=== PATIENT | male | born 1980 | race Caucasian/White ===

== ENCOUNTER 2023-02-21 17:04 | Inpatient (IN) ==
--- NOTE | 2023-02-21 17:36 | ED Triage Note ---
Date of Service February 21, 2023 Provider in Triage Author: Ivana Villa History of Present Illness This patient was briefly evaluated while in triage. An abbreviated physical exam was performed. This patient is a 42-year-old Male who presents to the ED for evaluation of Physical Exam Initial orders for labs and / or imaging were placed and patient was placed in the waiting area until a bed is available. Please see further documentation for the full ED course.
--- NOTE | 2023-02-21 21:47 | Emergency Department Note ---
History of Present Illness General Chief complaint: Infection Stated complaint: RT BIG TOE INFECTION, OPEN HEATHER Time Seen by Provider: 02/21/23 21:20 History of Present Illness NAME: LEEROY KOCH AGE: 42 SEX: M : 1980 ARRIVES VIA: Walk-In INFORMANT: Patient ED PROVIDER(S): NIDA Villatoro, Cody Alexander MD The patient is a 42-year-old male who arrives to the emergency department for evaluation of a right great toe infection. The patient has a history of diabetes type 2 with complications. The patient reports he was previously being treated by his striper spray gun, who was giving him oral antibiotics. He states he visited for a follow-up appointment today, and was instructed to come to the emergency department for evaluation. The patient is neurovascularly intact, he does report very little sensation to the great toe. He states it began as a callus on the bottom of the toe which opened up and created the large wound engulfing the entirety of the great toe. Home Medications Medication Instructions Recorded Confirmed Type antiarthritic combination no.2 900 900 mg PO QAM 07/04/21 02/22/23 History mg tablet (glucosamine-chondroitin) ibuprofen 200 mg capsule 200 mg PO Q8H PRN pain 07/04/21 02/21/23 History multivitamin 1 tab PO QAM 07/04/21 02/22/23 History omega 5-kti-hva-fish oil 300 1 cap PO QAM 07/04/21 02/22/23 History mg-1,000 mg capsule (Fish Oil) empagliflozin 10 mg tablet 10 mg PO QAM #90 tabs 01/16/23 02/22/23 Rx metformin 1,000 mg tablet 1,000 mg PO BID #180 tabs 01/16/23 02/22/23 Rx Auto Titrating CPAP #1 ea 01/17/23 02/22/23 Rx CPAP Supplies #1 ea 01/19/23 02/22/23 Rx lisinopril 5 mg tablet 5 mg PO QAM 02/22/23 02/22/23 History Allergies Allergy/AdvReac Type Severity Reaction Status Date / Time No Known Drug Allergies Allergy none Verified 02/22/23 00:15 Past Med/Surg History Medical History Snoring Status post pneumothorax Diabetes with ulcer of foot 41 year old man with a history of Type II diabetes for upcoming surgery on L 5th toe and debridement and skin grafting of diabetic ulcer on bottom of L foot, here for management of anticoagulation therapy. Patient will be immobilized in a boot for two weeks with limited walking. Patient has factor V Leiden heterozygosity. He has never had a VTE event, but a brother has had several and is on lifelong anticoagulation. There are no good data and no specific recommendations on how to manage this type of patient in this clinical situation. The patient and I had a long discussion about options. My opinion is informed by his history of type II diabetes and his history of cellulitis in this leg (last October). A post phlebitic syndrome would potentially be very problematic for him. Given that the Factor V Leiden and the immobilization give him and increased risk for VTE events, I have recommended a prophylactic dose of a DOAC for two weeks following surgery. Originally I was going to chose Eliquis, but it is non-formulary on his insurance so I have opted for Xarelto 10 mg daily which will begin the evening (24 hours after) his procedure. He will take this for 2 weeks at which time we will contact the patient to see how the healing process is going. If he is out of his boot and ambulating more, we will switch him to 81 mg ASA until he has resumed normal activity. Standard clinic education on VTE signs and symptoms and prevention is provided. Factor V Leiden Surgical History Status post ORIF of fracture of ankle H/O left knee surgery History of appendectomy Family History Mother Cancer Denies family history of Ovarian cancer Prostate cancer Diabetes Myocardial infarction Breast cancer Colorectal cancer Social History Smoking Status: Unknown if ever smoked Tobacco Type: Cigars Cigarettes Per Day: very rarely has a cigar; once a year; Second Hand Exposure: No; Do You Dip or Chew Tobacco: No; Hx Alcohol Use: Yes Alcohol type: beer Alcohol Intake Frequency Comment: weekends Hx Substance Use: No Preferred Language: Turkish Communication Ability: Effective Visual Impairment: Limited Hearing Ability: Normal Veterans Service Representative Required: No Beliefs That Will Affect Care: None marital status: Single Current Living Situation: Alone Current Living Situation Comment: pt aware that needs to find someone to help after procedure current occupational status: employed How many Children do You have: 0 Feels Safe at Home: Yes Childhood Exposure to Second-Hand Smoke: No caffeine: Yes (some use) Dental Care, Regularly: No Physical Activity Frequency: Does not Exercise Seatbelt Use: sometimes Sunscreen Use: Yes (at the pool or beach ) Assistive Devices: Glasses Physical Exam Vital Signs Vital Signs - 24 hr 02/21/23 17:35 02/22/23 00:32 02/22/23 00:37 Temperature 36.2 C L 36.9 C Temperature Source Temporal Artery Scan Oral Pulse Rate 94 H Pulse Rate [Right Finger] 80 Respiratory Rate 18 16 Respiratory Effort / Characteristics Non-Labored Spontaneous Respiratory Depth Normal Respiratory Pattern Regular Blood Pressure 146/81 H Blood Pressure [Right Arm] 130/76 Blood Pressure Mean 102 Blood Pressure Mean [Right Arm] 94 Blood Pressure Position Sitting Pulse Oximetry 95 99 95 Oxygen Delivery Method Room Air Room Air Sepsis Recent Fever Within 48 Hours No Sepsis New/Unexplained Change in Mental Status N/A Sepsis Action Taken by Nursing No Action Required General: Awake, alert and oriented. No acute distress. Well developed, hydrated and nourished. Appears stated age. Skin: Skin in warm, dry and intact without rashes or lesions. Appropriate color for ethnicity. Nailbeds pink with no cyanosis or clubbing. Head: The head is normocephalic and atraumatic without tenderness, visible or palpable masses, depressions, or scarring. Hair is of normal texture and evenly distributed. Extremities: Bilateral upper and left lower extremities are atraumatic in appearance without tenderness or deformity. No swelling or erythema. Full range of motion is noted to all joints. Muscle strength is 5/5 bilaterally. Tendon function is normal. Capillary refill is less than 3 seconds in all extremities. Pulses palpable. The right great toe is edematous, with various stages of ulceration and necrosis. There is decreased sensation. Neurological: The patient is awake, alert and oriented to person, place, and time with normal speech. Motor function is normal with muscle strength 5/5 bilaterally to upper and lower extremities. Sensation is intact bilaterally. Reflexes 2+ bilaterally. Cranial nerves are intact. Cerebellar function is intact. Memory is normal and thought process is intact. Psychiatric: Appropriate mood and affect. Good judgement and insight. No visual or auditory hallucinations. No suicidal or homicidal ideation. Course Administered Medications Vancomycin HCl 2,750 mg/ (Sodium Chloride) 555 mls @ 200 mls/hr IV NOW STA Stop: 02/22/23 02:06 Last Admin: 02/22/23 00:32 Dose: 200 mls/hr Documented By: ASW Discontinued Medications Piperacillin Sod/Tazobactam Sod (Zosyn) 4.5 gm in 100 mls @ 200 mls/hr IV NOW ONE Stop: 02/21/23 22:21 Last Infusion: 02/21/23 23:29 Dose: Infused Documented By: Admin: 02/21/23 22:22 Dose: 200 mls/hr Documented By: Medical Decision Making Differential Diagnosis Foreign body, osteomyelitis, fracture, dislocation, joint compromise, infection, soft tissue injury, tendon injury, vascular compromise, compartment syndrome, as well as other pathologies. Medical Records Attestation: I reviewed the patient's medical records. Home Medications Current Medication List: was personally reviewed by me Laboratory Data Attestation: I reviewed the patient's lab results. No leukocytosis, no electrolyte abnormalities. 02/21/23 22:18 02/21/23 22:18 Lab Results 02/21/23 Range/Units 22:18 WBC 4.51 L (4.8-10.8) K/ul RBC 5.06 (4.70-6.10) M/uL Hgb 15.2 (14.0-18.0) g/dl Hct 44.6 (42.0-52.0) % MCV 88.1 (80.0-100.0) fL MCH 30.0 (25.0-34.0) pg MCHC 34.1 (32.0-36.0) g/dL RDW Std Deviation 41.7 (36.4-46.3) fL RDW Coeff of Mariaelena 13.2 (11.5-14.5) % Plt Count 239 (130-400) K/uL MPV 8.0 L (9.4-12.4) fL Immature Gran % (Auto) 0.2 % Neut % (Auto) 61.7 % Lymph % (Auto) 27.5 % [place] % (Auto) 10.2 % Eos % (Auto) 0.2 % Baso % (Auto) 0.2 % Neut # (Auto) 2.78 (1.40-6.50) K/uL Lymph # (Auto) 1.24 (1.20-3.40) K/uL [place] # (Auto) 0.46 (0.11-0.59) K/uL Eos # (Auto) 0.01 (0.00-0.50) K/uL Baso # (Auto) 0.01 (0.00-0.20) K/uL Immature Gran # (Auto) 0.01 (0.01-0.20) K/uL Sodium 138 (136-145) mmol/L Potassium 4.2 (3.5-5.1) mmol/L Chloride 103 (98-107) mmol/L Carbon Dioxide 28 (21-32) mmol/L Anion Gap 7 (3-11) BUN 20 (6-23) mg/dl Creatinine 0.71 (0.6-1.4) mg/dl Est Cr Clr Drug Dosing 197.2 ml/min Est GFR ( Amer) 132.3 ml/min Est GFR (Non-Af Amer) 114.1 ml/min BUN/Creatinine Ratio 28.2 H (10-20) Glucose 105 H (70-99(Fasting)) mg/dl Lactate 1.2 (0.4-2.0) mmol/L Calcium 9.6 (8.6-10.3) mg/dl Total Bilirubin 0.6 (0.2-1.0) mg/dl AST 31 (13-39) U/L ALT 51 (7-52) U/L Alkaline Phosphatase 40 (34-104) U/L Total Protein 7.8 (6.0-8.3) gm/dl Albumin 4.6 (3.4-5.0) gm/dl Globulin 3.2 (2.5-4.0) gm/dl Albumin/Globulin Ratio 1.4 (0.9-2) Imaging Data Radiologist's Impression: Toe X-Ray 02/21/23 21:52 RIGHT FIRST TOE 3 VIEWS CLINICAL HISTORY: First toe infection. FINDINGS: 3 views of the right first toe are correlated with radiographs of the right foot dated 10/25/2022. The skeletal structures are well mineralized. There is permeative destructive change and bony fragmentation seen involving the tuft of the first distal phalanx. Overlying soft tissue edema is noted. The first metatarsophalangeal and interphalangeal joints are maintained. No radiodense foreign body or soft tissue gas is identified. A small ulceration suggested along the plantar aspect of the first toe. IMPRESSION: 1. There is permeative destructive change and bony fragmentation involving the tuft of the first distal phalanx. Given the history of infection this is typical for osteomyelitis. 2. There is evidence of cellulitis of the first toe with a small plantar ulceration. Electronically signed by: Nelson Paige M.D. 02/21/2023 10:17 PM MDM Narrative The patient is a 42-year-old male who arrives to the emergency department with the above-stated complaint. Upon examination the patient has a visibly infected right great toe. He is currently following with podiatry, and has been on a course of oral antibiotics. He was at the office today for reevaluation when the provider stated the patient needed to be evaluated in the emergency department for IV antibiotics. The patient had imaging 2 weeks ago, repeat imaging today showed significantly worsening cellulitis, as well as osteomyelitis. The patient is not showing signs of systemic infection, however he will need to be admitted for treatment as well as possible surgical debridement. A saline lock was placed, CBC, CMP, blood cultures, lactate were obtained. A wound culture was obtained prior to empiric therapy. 4.5 g of Zosyn as well as weight-based vancomycin was ordered. I consulted with Dr. Aleman from orthopedics, who stated the patient could be admitted to medicine with podiatry consult. Dr. Valiente from the [facility] admitting team assumed care of the patient at that time. Impression & Plan Osteomyelitis of great toe of right foot Discharge Plan Visit Data Chief Complaint: Infection Stated Complaint: RT BIG TOE INFECTION, OPEN HEATHER ED Provider: Cody Alexander ED Midlevel Provider: Ivana Villa Discharge Problem: Osteomyelitis of great toe of right foot Forms Stand Alone Forms: [facility] Prescriptions Prescriptions: No Action multivitamin Tablet 1 tab PO QAM omega 6-szx-msk-fish oil [Fish Oil] 300-1,000 mg capsule 1 cap PO QAM glucosamine-chondroitin 900 mg tablet 900 mg PO QAM ibuprofen 200 mg capsule 200 mg PO Q8H PRN (Reason: pain) metformin 1,000 mg tablet 1,000 mg PO BID Qty: 180 3RF empagliflozin 10 mg tablet 10 mg PO QAM Qty: 90 1RF (DME) Auto Titrating CPAP Misc See Rx Instructions .Route Qty: 1 0RF Rx Instructions: pressures from 5 to 15 cm of water (DME) CPAP Supplies Misc See Rx Instructions .Route Qty: 1 0RF Rx Instructions: tubing, mask, filter lisinopril 5 mg tablet 5 mg PO QAM Referrals Referrals: Marcos Jacobs DO [Primary Care Provider] -
[2023-02-21] MEDS ORDERED: PIPERACILLIN/TAZOBACTAM 4.5 GM/100 ML BAG IV ONE (21:52)
--- NOTE | 2023-02-21 22:20 | XRay Report ---
RIGHT FIRST TOE 3 VIEWS CLINICAL HISTORY: First toe infection. FINDINGS: 3 views of the right first toe are correlated with radiographs of the right foot dated 2022. The skeletal structures are well mineralized. There is permeative destructive change and bony f ragmentation seen involving the tuft of the first distal phalanx. Overlying soft tissue edema is note d. The first metatarsophalangeal and interphalangeal joints are maintained. No radiodense foreign bod y or soft tissue gas is identified. A small ulceration suggested along the plantar aspect of the firs t toe. IMPRESSION: 1. There is permeative destructive change and bony fragmentation involving the tuft of the first dist al phalanx. Given the history of infection this is typical for osteomyelitis. 2. There is evidence of cellulitis of the first toe with a small plantar ulceration. Electronically signed by: Nelson Paige M.D. 02/21/2023 10:17 PM
[2023-02-21 22:37] LABS: Basophils # (auto) 0.01 K/uL (0.00-0.20); Basophils % (auto) 0.2 %; Eosinophils # (auto) 0.01 K/uL (0.00-0.50); Eosinophils % (auto) 0.2 %; Hematocrit (blood only) 44.6 % (42.0-52.0); Hemoglobin 15.2 g/dl (14.0-18.0); Immature Granulocytes # (auto) 0.01 K/uL (0.01-0.20); Immature Granulocytes % (auto) 0.2 %; Lymphocytes # (auto) 1.24 K/uL (1.20-3.40); Lymphocytes % (auto) 27.5 %; Mean Corpuscular Hgb Conc 34.1 g/dL (32.0-36.0); Mean Corpuscular Volume 88.1 fL (80.0-100.0); Monocytes # (auto) 0.46 K/uL (0.11-0.59); Monocytes % (auto) 10.2 %; Neutrophils # (auto) 2.78 K/uL (1.40-6.50); Neutrophils % (auto) 61.7 %; Platelet Count 239 K/uL (130-400); RDW Coefficient of Variation 13.2 % (11.5-14.5); RDW Standard Deviation 41.7 fL (36.4-46.3); Red Blood Count 5.06 M/uL (4.70-6.10); White Blood Count 4.51 K/ul (4.8-10.8)
[2023-02-21 22:52] LABS: Albumin Globulin Ratio 1.4 (0.9-2); Albumin Level 4.6 gm/dl (3.4-5.0); BUN Creatinine Ratio 28.2 (10-20); Bilirubin,Total 0.6 mg/dl (0.2-1.0); Calcium 9.6 mg/dl (8.6-10.3); Creatinine Clr Calc Pharmacy 197.2 ml/min; Est GFR (African American) 132.3 ml/min; Est GFR (Non-African American) 114.1 ml/min; Globulin 3.2 gm/dl (2.5-4.0); Potassium 4.2 mmol/L (3.5-5.1); Total Protein 7.8 gm/dl (6.0-8.3)
[2023-02-21] MEDS ORDERED: VANCOMYCIN CONSULT ACTIVE PRN ×2 (23:15→23:30)
[2023-02-21] MEDS ORDERED: VANCOMYCIN HCL 2,750 MG in SODIUM CHLORIDE 0.9% 500 ML IV STA (23:20)
[2023-02-21] MEDS ORDERED: VANCOMYCIN HCL 2,750 MG in SODIUM CHLORIDE 0.9% 500 ML IV ONE (23:30)
--- NOTE | 2023-02-21 23:52 | History & Physical Report ---
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: (3) HTN, goal below 130/80: (4) Factor V Leiden: (5) Diabetes mellitus type 2 with complications: (6) Diabetic neuropathy: Plan Osteomyelitis right great toe/diabetic foot infection- Has had arterial Dopplers in the past that are normal, and has a good distal pulse bilaterally Zosyn 4.5 g IV given in ED Add vancomycin IV per pharmacokinetic monitoring Ertapenem 1 g IV daily for ease of use in case he will be discharged on antibiotics Will likely need PICC line Order MRI of right foot to further characterize infection Diabetes mellitus- Hold metformin Continue empagliflozin Placed on Accu-Cheks with NovoLog SSI Factor V Leiden history- Check lower extremity venous Doppler on the right Sleep disorder- CPAP at bedtime as needed History of Present Illness Chief Complaint: The patient presents to the emergency department with complaint of an ongoing right great toe infection for the past couple months. He has been treated by his outpatient supervisor correspondence section with oral antibiotics, which he had been appearing to be healing well, until the past few days when the toe started to swell and opened up at the most distal part. Primary Care Provider: Marcos Jacobs DO The patient is a 42-year-old male with a past medical history including factor V Leiden, hypertension, diabetic ulcer of right great toe, history of pneumothorax, and hypertriglyceridemia, diabetes mellitus type 2, diabetic neuropathy, obesity, and MAXI on CPAP. He presents to the emergency department due to a worsening of right great toe infection. X-rays in the emergency depa rtment suggested a right first distal phalanx infection suggestive of osteomyelitis and cellulitis. Allergies Allergy/AdvReac Type Severity Reaction Status Date / Time No Known Drug Allergies Allergy none Verified 02/22/23 00:15 Home Medications Medication Instructions Recorded Confirmed Type antiarthritic combination no.2 900 900 mg PO QAM 07/04/21 02/22/23 History mg tablet (glucosamine-chondroitin) ibuprofen 200 mg capsule 200 mg PO Q8H PRN pain 07/04/21 02/21/23 History multivitamin 1 tab PO QAM 07/04/21 02/22/23 History omega 7-klv-qii-fish oil 300 1 cap PO QAM 07/04/21 02/22/23 History mg-1,000 mg capsule (Fish Oil) empagliflozin 10 mg tablet 10 mg PO QAM #90 tabs 01/16/23 02/22/23 Rx metformin 1,000 mg tablet 1,000 mg PO BID #180 tabs 01/16/23 02/22/23 Rx Auto Titrating CPAP #1 ea 01/17/23 02/22/23 Rx CPAP Supplies #1 ea 01/19/23 02/22/23 Rx lisinopril 5 mg tablet 5 mg PO QAM 02/22/23 02/22/23 History Past Med/Surg History Medical History (Updated 02/22/23 @ 02:08 by Eder Cerda MD) Factor V Leiden Snoring Status post pneumothorax Diabetes with ulcer of foot 41 year old man with a history of Type II diabetes for upcoming surgery on L 5th toe and debridement and skin grafting of diabetic ulcer on bottom of L foot, here for management of anticoagulation therapy. Patient will be immobilized in a boot for two weeks with limited walking. Patient has factor V Leiden heterozygosity. He has never had a VTE event, but a brother has had several and is on lifelong anticoagulation. There are no good data and no specific recommendations on how to manage this type of patient in this clinical situation. The patient and I had a long discussion about options. My opinion is informed by his history of type II diabetes and his history of cellulitis in this leg (last October). A post phlebitic syndrome would potentially be very problematic for him. Given that the Factor V Leiden and the immobilization give him and increased risk for VTE events, I have recommended a prophylactic dose of a DOAC for two weeks following surgery. Originally I was going to chose Eliquis, but it is non-formulary on his insurance so I have opted for Xarelto 10 mg daily which will begin the evening (24 hours after) his procedure. He will take this for 2 weeks at which time we will contact the patient to see how the healing process is going. If he is out of his boot and ambulating more, we will switch him to 81 mg ASA until he has resumed normal activity. Standard clinic education on VTE signs and symptoms and prevention is provided. Surgical History Status post ORIF of fracture of ankle H/O left knee surgery History of appendectomy Family History Mother Cancer Denies family history of Ovarian cancer Prostate cancer Diabetes Myocardial infarction Breast cancer Colorectal cancer Social History Smoking Status: Unknown if ever smoked Tobacco Type: Cigars Cigarettes Per Day: very rarely has a cigar; once a year; Second Hand Exposure: No; Do You Dip or Chew Tobacco: No; Hx Alcohol Use: Yes Alcohol type: beer Alcohol Intake Frequency Comment: weekends Hx Substance Use: No Preferred Language: Austrian Communication Ability: Effective Visual Impairment: Limited Hearing Ability: Normal [employer] Required: No Beliefs That Will Affect Care: None marital status: Single Current Living Situation: Alone Current Living Situation Comment: pt aware that needs to find someone to help after procedure current occupational status: employed How many Children do You have: 0 Feels Safe at Home: Yes Childhood Exposure to Second-Hand Smoke: No caffeine: Yes (some use) Dental Care, Regularly: No Physical Activity Frequency: Does not Exercise Seatbelt Use: sometimes Sunscreen Use: Yes (at the pool or beach ) Assistive Devices: Glasses Review of Systems Review of Systems: The patient denies chest pain, palpitations, shortness of breath, dyspnea on exertion, cough, sore throat, fevers, chills, sweats, weight change, fatigue, nausea, vomiting, diarrhea , constipation, abdominal pain, pelvic pain, blood in urine or stool, dysuria, urinary frequency or urgency, lightheadedness, dizziness, headache, memory loss, loss of consciousness, imbalance, focal or generalized weakness, numbness or tingling in arms or legs, generalized arthralgias or myalgias, back or neck pain, or night sweats. The review of systems is otherwise negative other than for that already noted above, and at least 10 systems have been reviewed. Physical Exam Physical Exam: The patient is awake, alert and oriented 3, well developed and well nourished, normocephalic and atraumatic, lying in bed and in no acute distress. HEENT--PERRL, EOMI, mucous membranes and oropharynx normal Neck--supple. No JVD. No bruits. Thyroid normal, trachea midline, no adenopathy. Heart--normal S1 and S2. No murmurs, rubs or gallops. Lungs--clear bilaterally, no respiratory distress, no accessory muscle use. Abdomen--normal bowel sounds and soft. Nontender. Nondistended, no hernias or masses, no organomegaly. Extremities--no cyanosis or clubbing. Trace pitting edema on the right. There are good distal pulses b/l. Dermatologic--normal skin turgor, normal color, no abnormal lymph nodes, no rash. Neurologic--cranial nerves II through XII grossly intact. Rheumatologic--normal range of motion. Psychiatric--normal affect. Results & Data Results & Data Vital Signs (Past 12 Hours) Vital Signs Temp Pulse Resp BP Pulse Ox O2 Del Method 02/21/23 17:35 36.2 C L 94 H 18 146/81 H 95 Room Air Laboratory Results Laboratory Results WBC 4.51 K/ul (4.8-10.8) L 02/21/23 22:18 RBC 5.06 M/uL (4.70-6.10) 02/21/23 22:18 Hgb 15.2 g/dl (14.0-18.0) 02/21/23 22:18 Hct 44.6 % (42.0-52.0) 02/21/23 22:18 MCV 88.1 fL (80.0-100.0) 02/21/23 22:18 MCH 30.0 pg (25.0-34.0) 02/21/23 22:18 MCHC 34.1 g/dL (32.0-36.0) 02/21/23 22:18 RDW Std Deviation 41.7 fL (36.4-46.3) 02/21/23 22:18 RDW Coeff of Mariaelena 13.2 % (11.5-14.5) 02/21/23 22:18 Plt Count 239 K/uL (130-400) 02/21/23 22:18 MPV 8.0 fL (9.4-12.4) L 02/21/23 22:18 Immature Gran % (Auto) 0.2 % 02/21/23 22:18 Neut % (Auto) 61.7 % 02/21/23 22:18 Lymph % (Auto) 27.5 % 02/21/23 22:18 [place] % (Auto) 10.2 % 02/21/23 22:18 Eos % (Auto) 0.2 % 02/21/23 22:18 Baso % (Auto) 0.2 % 02/21/23 22:18 Neut # (Auto) 2.78 K/uL (1.40-6.50) 02/21/23 22:18 Lymph # (Auto) 1.24 K/uL (1.20-3.40) 02/21/23 22:18 [place] # (Auto) 0.46 K/uL (0.11-0.59) 02/21/23 22:18 Eos # (Auto) 0.01 K/uL (0.00-0.50) 02/21/23 22:18 Baso # (Auto) 0.01 K/uL (0.00-0.20) 02/21/23 22:18 Immature Gran # (Auto) 0.01 K/uL (0.01-0.20) 02/21/23 22:18 Sodium 138 mmol/L (136-145) 02/21/23 22:18 Potassium 4.2 mmol/L (3.5-5.1) 02/21/23 22:18 Chloride 103 mmol/L (98-107) 02/21/23 22:18 Carbon Dioxide 28 mmol/L (21-32) 02/21/23 22:18 Anion Gap 7 (3-11) 02/21/23 22:18 BUN 20 mg/dl (6-23) 02/21/23 22:18 Creatinine 0.71 mg/dl (0.6-1.4) 02/21/23 22:18 Est Cr Clr Drug Dosing 197.2 ml/min 02/21/23 22:18 Est GFR ( Amer) 132.3 ml/min 02/21/23 22:18 Est GFR (Non-Af Amer) 114.1 ml/min 02/21/23 22:18 BUN/Creatinine Ratio 28.2 (10-20) H 02/21/23 22:18 Glucose 105 mg/dl (70-99(Fasting)) H 02/21/23 22:18 Lactate 1.2 mmol/L (0.4-2.0) 02/21/23 22:18 Calcium 9.6 mg/dl (8.6-10.3) 02/21/23 22:18 Total Bilirubin 0.6 mg/dl (0.2-1.0) 02/21/23 22:18 AST 31 U/L (13-39) 02/21/23 22:18 ALT 51 U/L (7-52) 02/21/23 22:18 Alkaline Phosphatase 40 U/L (34-104) 02/21/23 22:18 Total Protein 7.8 gm/dl (6.0-8.3) 02/21/23 22:18 Albumin 4.6 gm/dl (3.4-5.0) 02/21/23 22:18 Globulin 3.2 gm/dl (2.5-4.0) 02/21/23 22:18 Albumin/Globulin Ratio 1.4 (0.9-2) 02/21/23 22:18 Impressions Toe X-Ray 02/21/23 21:52 RIGHT FIRST TOE 3 VIEWS CLINICAL HISTORY: First toe infection. FINDINGS: 3 views of the right first toe are correlated with radiographs of the right foot dated 10/25/2022. The skeletal structures are well mineralized. There is permeative destructive change and bony fragmentation seen involving the tuft of the first distal phalanx. Overlying soft tissue edema is noted. The first metatarsophalangeal and interphalangeal joints are maintained. No radiodense foreign body or soft tissue gas is identified. A small ulceration suggested along the plantar aspect of the first toe. IMPRESSION: 1. There is permeative destructive change and bony fragmentation involving the tuft of the first distal phalanx. Given the history of infection this is typical for osteomyelitis. 2. There is evidence of cellulitis of the first toe with a small plantar ulceration. Electronically signed by: Nelson Paige M.D. 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
[2023-02-22] MEDS ORDERED: DEXTROSE 50% 50 ML SYRINGE IV PRN (03:03)
[2023-02-22] MEDS ORDERED: ONDANSETRON INJ 2 MG/ML 2 ML VIAL IV PRN ×2 (03:03→18:07)
[2023-02-22] MEDS ORDERED: GLUCOSE 10 TAB/TUBE PO PRN (03:03)
[2023-02-22] MEDS ORDERED: GLUCOSE 40% GEL 15 GM TUBE PO PRN (03:03)
[2023-02-22] MEDS ORDERED: ACETAMINOPHEN 325 MG TAB PO PRN (03:03)
[2023-02-22] MEDS ORDERED: GLUCAGON FOR INJ 1 MG VIAL SQ PRN (03:03)
[2023-02-22] MEDS ORDERED: CARBOHYDRATES FOR HYPOGLYCEMIA PO PRN (03:03)
[2023-02-22 04:09] LABS: Basophils # (auto) 0.02 K/uL (0.00-0.20); Basophils % (auto) 0.4 %; Eosinophils # (auto) 0.01 K/uL (0.00-0.50); Eosinophils % (auto) 0.2 %; Hemoglobin 14.1 g/dl (14.0-18.0); Immature Granulocytes # (auto) 0.01 K/uL (0.01-0.20); Immature Granulocytes % (auto) 0.2 %; Lymphocytes # (auto) 1.15 K/uL (1.20-3.40); Lymphocytes % (auto) 24.2 %; Mean Corpuscular Hemoglobin 30.1 pg (25.0-34.0); Mean Corpuscular Hgb Conc 34.4 g/dL (32.0-36.0); Mean Corpuscular Volume 87.4 fL (80.0-100.0); Mean Platelet Volume 8.4 fL (9.4-12.4); Monocytes # (auto) 0.52 K/uL (0.11-0.59); Monocytes % (auto) 10.9 %; Neutrophils # (auto) 3.04 K/uL (1.40-6.50); Neutrophils % (auto) 64.1 %; Platelet Count 230 K/uL (130-400); RDW Coefficient of Variation 13.2 % (11.5-14.5); Red Blood Count 4.69 M/uL (4.70-6.10); White Blood Count 4.75 K/ul (4.8-10.8)
[2023-02-22 04:26] LABS: Albumin Level 4.1 gm/dl (3.4-5.0); BUN Creatinine Ratio 24.4 (10-20); Calcium 8.7 mg/dl (8.6-10.3); Creatinine Clr Calc Pharmacy 179.5 ml/min; Est GFR (African American) 127.2 ml/min; Est GFR (Non-African American) 109.8 ml/min; Phosphorus 3.4 mg/dl (2.5-4.9); Potassium 4.2 mmol/L (3.5-5.1)
--- NOTE | 2023-02-22 06:13 | Ultrasound Report ---
Exam(s): US VENOUS RIGHT LOWER EXTREMITY EXAM: US Duplex Right Lower Extremity Veins CLINICAL HISTORY: Reason for exam: RLE swelling, R great toe osteo. TECHNIQUE: Real-time duplex ultrasound scan of the right lower extremity veins integrating B-mode two-dimensional vascular structure, Doppler spectral analysis, color flow Doppler imaging and compression. COMPARISON: No relevant prior studies available. FINDINGS: Deep veins: Unremarkable. No DVT in the visualized common femoral, femoral, proximal deep femoral or popliteal veins. The veins demonstrate normal color flow, are normally compressible, with normal phasic flow and/or augmentation response. Superficial veins: Unremarkable. No thrombus in the visualized great saphenous vein. Soft tissues: No acute findings. No popliteal cyst. A few groin lymph nodes not abnormal by size criteria. IMPRESSION: Normal right lower extremity duplex venous ultrasound. Electronically signed by: Carl De Los Santos MD 02/22/23 06:12 AM
[2023-02-22] MEDS: ERTAPENEM SODIUM 1,000 MG in SYRINGE 0 ML IV SCH (07:42)
[2023-02-22] MEDS: VANCOMYCIN HCL 1,250 MG in SODIUM CHLORIDE 0.9% 250 ML IV SCH ×2 (07:47→15:57)
[2023-02-22 07:52] LABS: Estimated Average Glucose 143 mg/dl; Hemoglobin A1C 6.6 % (4.5-5.6)
[2023-02-22] MEDS: MULTIVITAMIN TAB PO SCH (07:55)
[2023-02-22] MEDS: lisinopril 5 MG TAB PO SCH (07:55)
--- NOTE | 2023-02-22 08:11 | Magnetic Resonance Report ---
MRI OF THE RIGHT FOREFOOT WITHOUT IV CONTRAST CLINICAL HISTORY: Osteomyelitis of the first toe. COMPARISON STUDY: Radiographs of the first toe dated 02/21/2023. TECHNIQUE: MRI of the right forefoot is performed utilizing various T1 and T2-weighted sequences in t he axial, sagittal, and coronal planes. IV contrast was not administered for this examination. The ex amination is degraded by motion artifact. FINDINGS: There is marked marrow edema within the first distal phalanx, with corresponding drop in si gnal on the T1-weighted sequences. There is erosion/fragmentation involving the distal shaft and tuft of the first distal phalanx. This is consistent with osteomyelitis. No additional similar-appearing marrow change is identified throughout the remainder of the forefoot. There is significant soft tissu e edema present in the first toe. No organized fluid collection is seen to suggest abscess. A small p lantar ulceration is suggested on sagittal image #25. Soft tissue edema is also seen along the dorsum of the foot. Imaged portions of the flexor and extensor tendons are intact. The Lisfranc ligament is maintained. IMPRESSION: 1. Erosion and bony fragmentation involving the distal shaft and tuft of the first distal phalanx as above. This is consistent with osteomyelitis. 2. There is evidence of surrounding cellulitis. 3. No fluid collection is seen to suggest abscess. 4. A plantar ulceration is suggested in the first toe. Correlate clinically. Dictated: 02/22/2023 7:12 AM Transcribed: 02/22/2023 8:03 AM [place] [id number] [email or web address] Electronically signed by: Nelson Paige M.D. 02/22/2023 8:10 AM
--- NOTE | 2023-02-22 09:41 | Hospitalist Progress Note ---
Date of Service February 22, 2023 Assessment & Plan (1) Osteomyelitis of great toe of right foot: Plan: Osteomyelitis right great toe/diabetic foot infection-confirmed on MRI Has had arterial Dopplers in the past that are normal, and has a good distal pulse bilaterally venous doppler is negative Ertapenem 1 g IV daily & vancomycin IV per pharmacokinetic monitoring for ease of use in case he will be discharged on antibiotics podiatric eval for confirmed osteomyelitis (2) Diabetes mellitus type 2 with complications: Plan: Diabetes mellitus-with diabetic neuropathy Hold metformin Continue empagliflozin Placed on Accu-Cheks with NovoLog SSI (3) Factor V Leiden: Plan: negative DVT assure DVT prevention while ill Plan Sleep disorder- CPAP at bedtime as needed Admission and Anticipated Discharge Date Admission Date: February 21, 2023 Subjective pt is not excited about the possiblitiy of surgery, will discuss with Dr Zafar, clinically has very swollen and translucent appearing, there is a open area on the plantar aspect and some dusky discoloration in the Physical Exam Physical Exam: right great toe is swollen and reddened there is an open area that is near the plantar base that is 1 cm and stage 2-3 lungs are clear cardiac exam is regular Results & Data Results & Data Vital Signs (Past 12 Hours) Vital Signs Temp Pulse Resp BP Pulse Ox O2 Del Method 02/22/23 07:38 98.2 F 77 20 111/83 96 Room Air 02/22/23 05:02 74 16 126/76 94 Room Air 02/22/23 00:37 98.4 F 95 Room Air 02/22/23 00:32 80 16 130/76 99 Laboratory Results reviewed cbc reviewed prp electronically communicated with Dr Andrade phamaring new consult and or coordinated OR PG Care Time/CCT Total # of Minutes Spent Total Time Spent with Patient: Total time spent is greater than 50% in coordination of care (as documented) at patient's floor/unit and/or counseling patient: Coding Level of Care Code 79119 SUB INP/OBS CARE 3/50MIN Diagnoses Osteomyelitis of great toe of right foot M86.9 Diabetes mellitus type 2 with complications E11.8 Factor V Leiden D68.51
[2023-02-22] MEDS: INSULIN ASPART PER UNIT CHARGE SC SCH ×4 (10:08→21:36)
--- NOTE | 2023-02-22 10:21 | Pharmacy Report ---
Pharmacy PK ABX Note - Date of Service February 22, 2023 - Assessment and Plan Assessment 42 year old M receiving Vancomycin and Ertapenem for treatment of right great toe osteomyelitis. * Day #1 of antimicrobial therapy. * PMHx significant for T2DM. * Labs/Vitals: Afebrile. No leukocytosis. SCr stable at 0.78 mg/dL. * Micro: Blood and toe cultures pending. * Imaging: XR and MRI confirm osteomyelitis per radiologist's read. Plan Vancomycin * Loading dose: 2750 mg IV x 1 * Maintenance dose: 1250 mg IV every 8 hours * Regimen is predicted to achieve target AUC/JOVANNA of 400-600 mg/L.hr * Random level ordered for: 02/23/23 Ertapenem * 1000 mg IV every 24 hours Pharmacy will continue to follow and will adjust dose/frequency as necessary. Thank you. Pharmacy has transitioned to AUC monitoring for vancomycin. AUC/JOVANNA is the preferred PK/PD target and is associated with decreased risk of nephrotoxicity compared to traditional trough targets.
--- NOTE | 2023-02-22 11:32 | Anesthesiology Consultation ---
Date of Service February 22, 2023 Assessment & Plan Chart Review Chart Review: entry level recruiter initiated History Surgery Operation Date: 02/22/23 12:05 Proposed Procedures p Right Great Toe Amputation - Alejandro Zafar, [place], [place] Height/Weight Height: 6 ft 1 in Weight: 142.7 kg Allergies Allergy/AdvReac Type Severity Reaction Status Date / Time No Known Drug Allergies Allergy none Verified 02/22/23 00:15 Medications Home Medications Medication Instructions Recorded Confirmed Last Taken antiarthritic combination no.2 900 900 mg PO QAM 07/04/21 02/22/23 02/21/23 mg tablet (glucosamine-chondroitin) ibuprofen 200 mg capsule 200 mg PO Q8H PRN pain 07/04/21 02/21/23 Unknown multivitamin 1 tab PO QAM 07/04/21 02/22/23 02/21/23 omega 0-whg-xlj-fish oil 300 1 cap PO QAM 07/04/21 02/22/23 02/21/23 mg-1,000 mg capsule (Fish Oil) empagliflozin 10 mg tablet 10 mg PO QAM #90 tabs 01/16/23 02/22/23 02/21/23 metformin 1,000 mg tablet 1,000 mg PO BID #180 tabs 01/16/23 02/22/23 02/21/23 am Auto Titrating CPAP #1 ea 01/17/23 02/22/23 Unknown CPAP Supplies #1 ea 01/19/23 02/22/23 Unknown lisinopril 5 mg tablet 5 mg PO QAM 02/22/23 02/22/23 02/21/23 Active Medications Generic Name Dose Route Start Last Admin Trade Name Saulo PRN Reason Stop Dose Admin Acetaminophen 650 mg 02/22/23 03:03 02/22/23 04:59 Acetaminophen 325 Mg Tab PO 03/24/23 03:02 650 mg Q4H PRN Administration pain/fever Ertapenem 1,000 mg/ Syringe 10 mls @ 2 mls/min 02/22/23 08:00 02/22/23 07:42 IV 04/05/23 07:59 2 mls/min Q24H RENEE Administration Vancomycin HCl 1,250 mg/ 275 mls @ 200 mls/hr 02/22/23 08:00 02/22/23 09:43 Sodium Chloride IV 04/05/23 07:59 Infused Q8H RENEE Infusion Insulin Aspart 0 units 02/22/23 07:30 02/22/23 10:08 Insulin Aspart Per Unit Charge SC 03/24/23 07:29 3 units ACHS RENEE Administration Lisinopril 5 mg 02/22/23 09:00 02/22/23 07:55 Lisinopril 5 Mg Tab PO 03/24/23 08:59 5 mg DAILY RENEE Administration Miscellaneous 1 each 02/22/23 08:00 02/22/23 11:04 Empagliflozin 10 Mg - Order Awaiting Action N/A 03/24/23 07:59 Not Given QS RENEE Multivitamins 1 tab 02/22/23 09:00 02/22/23 07:55 Multivitamin Tab PO 03/24/23 08:59 1 tab QAM RENEE Administration Past Medical History Medical History Factor V Leiden Snoring Status post pneumothorax Diabetes with ulcer of foot 41 year old man with a history of Type II diabetes for upcoming surgery on L 5th toe and debridement and skin grafting of diabetic ulcer on bottom of L foot, here for management of anticoagulation therapy. Patient will be immobilized in a boot for two weeks with limited walking. Patient has factor V Leiden heterozygosity. He has never had a VTE event, but a brother has had several and is on lifelong anticoagulation. There are no good data and no specific recommendations on how to manage this type of patient in this clinical situation. The patient and I had a long discussion about options. My opinion is informed by his history of type II diabetes and his history of cellulitis in this leg (last October). A post phlebitic syndrome would potentially be very problematic for him. Given that the Factor V Leiden and the immobilization give him and increased risk for VTE events, I have recommended a prophylactic dose of a DOAC for two weeks following surgery. Originally I was going to chose Eliquis, but it is non-formulary on his insurance so I have opted for Xarelto 10 mg daily which will begin the evening (24 hours after) his procedure. He will take this for 2 weeks at which time we will contact the patient to see how the healing process is going. If he is out of his boot and ambulating more, we will switch him to 81 mg ASA until he has resumed normal activity. Standard clinic education on VTE signs and symptoms and prevention is provided. Past Family History Family History Mother Cancer Denies family history of Ovarian cancer Prostate cancer Diabetes Myocardial infarction Breast cancer Colorectal cancer Past Surgical History Surgical History Status post ORIF of fracture of ankle H/O left knee surgery History of appendectomy Social History Smoking Status: Unknown if ever smoked Smoking cigarettes per day: very rarely has a cigar; once a year Do You Dip or Chew Tobacco: No Hx Alcohol Use: Yes Alcohol type: beer alcohol intake frequency: holidays/special occasions only Hx Substance Use: No Physical Exam Vital Signs Last Vital Signs Temp 98.2 F 02/22/23 07:38 Pulse 77 02/22/23 07:38 Resp 20 02/22/23 07:38 BP 111/83 02/22/23 07:38 Pulse Ox 96 02/22/23 07:38 O2 Del Method Room Air 02/22/23 07:38 Testing Laboratory Results 02/22/23 03:42 02/22/23 03:42 Hemoglobin A1c 6.6 % (4.5-5.6) H 02/22/23 03:42 02/21/23 21:53 Gram Stain - Final Toe,Right Great 02/22/23 07:39 POC Glucose 129 H
[2023-02-22] MEDS ORDERED: LIDOCAINE 2% 2 ML VIAL/AMP(20MG/ML) INFIL ONE (17:55)
[2023-02-22] MEDS ORDERED: PROPOFOL IV EMULSION 10 MG/ML 20 ML VIAL IV ONE ×3 (17:55→18:16)
[2023-02-22] MEDS ORDERED: ATROPINE SULFATE 0.1 MG/ML 10ML SYR IV PRN (18:07)
[2023-02-22] MEDS ORDERED: ePHEDrine sulfate 50 MG/ML AMP IV PRN (18:07)
[2023-02-22] MEDS ORDERED: fentaNYL citrate PF 100 MCG/2 ML VIAL IV PRN (18:07)
[2023-02-22] MEDS ORDERED: fentaNYL citrate PF 100 MCG/2 ML VIAL ONE (18:15)
[2023-02-22] MEDS ORDERED: MIDAZOLAM HCL 1 MG/ML 2ML VIAL ONE ×2 (18:15→18:31)
[2023-02-22] MEDS ORDERED: ONDANSETRON INJ 2 MG/ML 2 ML VIAL ONE (18:16)
--- NOTE | 2023-02-22 18:16 | History & Physical Bridge Note ---
Date of Service February 22, 2023 History & Physical Bridge Note I have examined the patient, reviewed the History & Physical and in the interval since the performance of the History & Physical I have noted the following changes of clinical significance: no changes noted
--- NOTE | 2023-02-22 18:16 | Orthopedic Consultation ---
Date of Consultation February 22, 2023 Assessment & Plan (1) Osteomyelitis of great toe of right foot: Patient seen, evaluated, and treated. Reviewed x-ray, MRI images, and diagnostic findings. Discussed treatment options. Due to severity of bone erosion and distal necrotic tissue removal of non-viable bone advised. Hallux amputation reviewed in detail as well as post operative recovery. All questions answered. Patient has decided to proceed with procedure. Thank you for allowing me to participate in the Patient's care. (2) Diabetic ulcer of toe: (3) Diabetes mellitus type 2 with complications: History of Present Illness Attending Physician: Gabriel Portillo MD History of Present Illness The patient is a pleasant, 42-year-old male seen at [facility] Emergency Room Pod A room A11-B for right great toe osteomyelitis. Patient has a past medical history significant for factor V Leiden, hypertension, diabetic ulcers, history of pneumothorax, and hypertriglyceridemia, diabetes mellitus type 2, diabetic neuropathy, obesity, and MAXI on CPAP. He presented to the emergency department due to a worsening of right great toe infection. X-rays and MRI taken in the emergency department show right first distal phalanx infection suggestive of osteomyelitis and cellulitis. Allergies Allergy/AdvReac Type Severity Reaction Status Date / Time No Known Drug Allergies Allergy none Verified 02/22/23 00:15 Home Medications Medication Instructions Recorded Confirmed Type antiarthritic combination no.2 900 900 mg PO QAM 07/04/21 02/22/23 History mg tablet (glucosamine-chondroitin) ibuprofen 200 mg capsule 200 mg PO Q8H PRN pain 07/04/21 02/21/23 History multivitamin 1 tab PO QAM 07/04/21 02/22/23 History omega 2-vfr-mwj-fish oil 300 1 cap PO QAM 07/04/21 02/22/23 History mg-1,000 mg capsule (Fish Oil) empagliflozin 10 mg tablet 10 mg PO QAM #90 tabs 01/16/23 02/22/23 Rx metformin 1,000 mg tablet 1,000 mg PO BID #180 tabs 01/16/23 02/22/23 Rx Auto Titrating CPAP #1 ea 01/17/23 02/22/23 Rx CPAP Supplies #1 ea 01/19/23 02/22/23 Rx lisinopril 5 mg tablet 5 mg PO QAM 02/22/23 02/22/23 History Patient History Medical History Factor V Leiden Snoring Status post pneumothorax Diabetes with ulcer of foot 41 year old man with a history of Type II diabetes for upcoming surgery on L 5th toe and debridement and skin grafting of diabetic ulcer on bottom of L foot, here for management of anticoagulation therapy. Patient will be immobilized in a boot for two weeks with limited walking. Patient has factor V Leiden heterozygosity. He has never had a VTE event, but a brother has had several and is on lifelong anticoagulation. There are no good data and no specific recommendations on how to manage this type of patient in this clinical situation. The patient and I had a long discussion about options. My opinion is informed by his history of type II diabetes and his history of cellulitis in this leg (last October). A post phlebitic syndrome would potentially be very problematic for him. Given that the Factor V Leiden and the immobilization give him and increased risk for VTE events, I have recommended a prophylactic dose of a DOAC for two weeks following surgery. Originally I was going to chose Eliquis, but it is non-formulary on his insurance so I have opted for Xarelto 10 mg daily which will begin the evening (24 hours after) his procedure. He will take this for 2 weeks at which time we will contact the patient to see how the healing process is going. If he is out of his boot and ambulating more, we will switch him to 81 mg ASA until he has resumed normal activity. Standard clinic education on VTE signs and symptoms and prevention is provided. Surgical History Status post ORIF of fracture of ankle H/O left knee surgery History of appendectomy Family History Mother Cancer Denies family history of Ovarian cancer Prostate cancer Diabetes Myocardial infarction Breast cancer Colorectal cancer Social History Smoking Status: Unknown if ever smoked Tobacco Type: Cigars Cigarettes Per Day: very rarely has a cigar; once a year; Second Hand Exposure: No; Do You Dip or Chew Tobacco: No; Hx Alcohol Use: Yes Alcohol type: beer Alcohol Intake Frequency Comment: weekends Hx Substance Use: No Preferred Language: Mongolian Communication Ability: Effective Visual Impairment: Limited Hearing Ability: Normal Insulation Worker Apprentice Required: No Beliefs That Will Affect Care: None marital status: Single Current Living Situation: Alone Current Living Situation Comment: pt aware that needs to find someone to help after procedure current occupational status: employed How many Children do You have: 0 Feels Safe at Home: Yes Childhood Exposure to Second-Hand Smoke: No caffeine: Yes (some use) Dental Care, Regularly: No Physical Activity Frequency: Does not Exercise Seatbelt Use: sometimes Sunscreen Use: Yes (at the pool or beach ) Assistive Devices: CPAP Review of Systems Review of Systems: All systems reviewed & are unremarkable except as noted in HPI & below Physical Exam Constitutional: well developed, well nourished, cooperative and comfortable Eyes: normal visual vang by confrontation Neck: normal visual inspection and trachea midline Respiratory: normal respiratory effort Cardiovascular: Rate/Rhythm: regular rate and regular rhythm Vessels: posterior tibial pulses present and dorsalis pedis pulses present Musculoskeletal: Extremities: extremities normal to inspection and + foot abnormality (Hallux limitus with associated right medial plantar wound) Right Skin: + ulcer (Full Thickness right IPJ hallux DFU), + skin atrophy (right hallux), + ecchymosis (Right hallux) and + erythema (Right hallux) Results & Data Vital Signs (Past 12 Hours) Vital Signs Temp Pulse Resp BP BP Pulse Ox O2 Del Method 02/22/23 18:05 37.2 C 87 17 150/87 H 95 Room Air 02/22/23 15:40 88 18 128/87 95 Room Air 02/22/23 07:38 36.8 C 77 20 111/83 96 Room Air Diagnostic Findings [place], [place] [phone] Magnetic Resonance Report Patient: LEEROY KOCH Admit Date: 02/21/23 MR#: [id number] Address1: [address] [place] [address] Acct ID:[id number] Address2: Date: 1980 [facility] Zip: [place] [address] Age: 42 Location: [facility] Sex: M Room/Bed: [facility] 1-19 Att Phy: Gabriel Portillo MD Diagnosis: DIABETIC FOOT INFECTION, OSTEOMYELITIS [place] Phy: Marcos Jacobs DO Service Date: 02/22/23 [facility] Phy: Interpreting Phy: Nelson Paige MDAdmit Phy: Eder Cerda MD Ordering Phy: Eder Cerda MD cc: ~ MRI OF THE RIGHT FOREFOOT WITHOUT IV CONTRAST CLINICAL HISTORY: Osteomyelitis of the first toe. COMPARISON STUDY: Radiographs of the first toe dated 02/21/2023. TECHNIQUE: MRI of the right forefoot is performed utilizing various T1 and T2- weighted sequences in the axial, sagittal, and coronal planes. IV contrast was not administered for this examination. The examination is degraded by motion artifact. FINDINGS: There is marked marrow edema within the first distal phalanx, with corresponding drop in signal on the T1-weighted sequences. There is erosion/fra gmentation involving the distal shaft and tuft of the first distal phalanx. This is consistent with osteomyelitis. No additional similar-appearing marrow change is identified throughout the remainder of the forefoot. There is significant soft tissue edema present in the first toe. No organized fluid collection is seen to suggest abscess. A small plantar ulceration is suggested on sagittal image #25. Soft tissue edema is also seen along the dorsum of the foot. Imaged portions of the flexor and extensor tendons are intact. The Lisfranc ligament is maintained. IMPRESSION: 1. Erosion and bony fragmentation involving the distal shaft and tuft of the first distal phalanx as above. This is consistent with osteomyelitis. 2. There is evidence of surrounding cellulitis. 3. No fluid collection is seen to suggest abscess. 4. A plantar ulceration is suggested in the first toe. Correlate clinically. Dictated: 02/22/2023 7:12 AM Transcribed: 02/22/2023 8:03 AM Norman [id number] [email or web address] Electronically signed by: Nelson Paige M.D. 02/22/2023 8:10 AM Dictated: 02/22/23 0712 Transcribed: 02/22/23 0803
[2023-02-22] MEDS ORDERED: LIDOCAINE 1%/EPINEPHRINE 1:100,000 20 ML VIAL ONE (18:40)
--- NOTE | 2023-02-22 19:18 | Post Operative Brief Note ---
Immediate Post Op Note v1 Date of Surgery February 22, 2023 Pre & Post Diagnosis Operation Date: 02/22/23 12:05 <No data on this case meets the specified criteria> I identified the patient and participated in the time-out.: Yes Procedure Operation Date: 02/22/23 12:05 <No data on this case meets the specified criteria> Surgeon Alejandro Zafar, WHITNEY, MS Dewaterer Operator none Estimated Blood Loss 1 Findings Consistent with Post-Op Diagnosis necrotic tissue right toe Specimens Right hallux - pathology Right distal phalanx - micro
--- NOTE | 2023-02-22 19:47 | Anesthesiology Progress Note ---
Date of Service February 22, 2023 Anesthesia Post Procedure Vital Signs Vital Signs: Temp Pulse Pulse Resp BP BP Pulse Ox 02/22/23 19:40 36.8 C 86 24 131/90 95 02/22/23 19:30 95 H 17 145/86 H 95 02/22/23 19:24 36.4 C L 95 H 19 133/70 92 02/22/23 18:05 37.2 C 87 17 150/87 H 95 02/22/23 15:40 88 18 128/87 95 02/22/23 07:38 36.8 C 77 20 111/83 96 02/22/23 05:02 74 16 126/76 94 02/22/23 00:37 36.9 C 95 02/22/23 00:32 80 16 130/76 99 O2 Del Method O2 Flow Rate 02/22/23 19:40 Room Air 02/22/23 19:30 Room Air 02/22/23 19:24 Oxymask 2 02/22/23 18:05 Room Air 02/22/23 15:40 Room Air 02/22/23 07:38 Room Air 02/22/23 05:02 Room Air 02/22/23 00:37 Room Air 02/22/23 00:32 Transfer of Care Handoff Completed per policy Notes Mental Status: alert / awake / arousable Patient Amnestic to Procedure: Yes Nausea / Vomiting: adequately controlled Pain: adequately controlled Airway Patency, RR, SpO2: stable & adequate BP & HR: stable & adequate Hydration State: stable & adequate Anesthetic Complications: no major complications apparent and Pt Satisfied with anesthetic care
[2023-02-23] MEDS: VANCOMYCIN HCL 1,250 MG in SODIUM CHLORIDE 0.9% 250 ML IV SCH ×2 (00:18→08:36)
[2023-02-23] MEDS ORDERED: VANCOMYCIN LEVEL ONE (07:30)
[2023-02-23 07:48] LABS: Basophils # (auto) 0.02 K/uL (0.00-0.20); Basophils % (auto) 0.4 %; Hematocrit (blood only) 43.9 % (42.0-52.0); Hemoglobin 14.4 g/dl (14.0-18.0); Immature Granulocytes # (auto) 0.01 K/uL (0.01-0.20); Immature Granulocytes % (auto) 0.2 %; Lymphocytes % (auto) 16.2 %; Mean Corpuscular Hemoglobin 29.6 pg (25.0-34.0); Mean Corpuscular Hgb Conc 32.8 g/dL (32.0-36.0); Mean Corpuscular Volume 90.1 fL (80.0-100.0); Mean Platelet Volume 8.1 fL (9.4-12.4); Monocytes # (auto) 0.47 K/uL (0.11-0.59); Monocytes % (auto) 9.5 %; Neutrophils # (auto) 3.63 K/uL (1.40-6.50); Neutrophils % (auto) 73.7 %; Platelet Count 200 K/uL (130-400); RDW Coefficient of Variation 13.2 % (11.5-14.5); RDW Standard Deviation 43.1 fL (36.4-46.3); Red Blood Count 4.87 M/uL (4.70-6.10); White Blood Count 4.93 K/ul (4.8-10.8)
[2023-02-23] MEDS: INSULIN ASPART PER UNIT CHARGE SC SCH ×4 (07:57→20:53)
[2023-02-23] MEDS: ERTAPENEM SODIUM 1,000 MG in SYRINGE 0 ML IV SCH (07:57)
[2023-02-23 08:14] LABS: Albumin Level 4.1 gm/dl (3.4-5.0); BUN Creatinine Ratio 15.8 (10-20); Calcium 8.9 mg/dl (8.6-10.3); Creatinine Clr Calc Pharmacy 184.2 ml/min; Est GFR (African American) 128.6 ml/min; Magnesium 2.2 mg/dl (1.7-2.4); Phosphorus 3.6 mg/dl (2.5-4.9); Potassium 4.8 mmol/L (3.5-5.1)
--- NOTE | 2023-02-23 08:30 | Pharmacy Report ---
Pharmacy PK ABX Note - Date of Service February 23, 2023 - Assessment and Plan Assessment 42 year old M receiving Vancomycin and Ertapenem for treatment of right great toe osteomyelitis. * Day #2 of antimicrobial therapy. * POD #1 s/p right great toe amputation * PMHx significant for T2DM. * Labs/Vitals: Afebrile. No leukocytosis. SCr stable. * Micro: blood cultures show no growth at 24 hours, right great toe cultures pending * Imaging: XR and MRI confirm osteomyelitis per radiologist's read. Plan Vancomycin * Current regimen: 1250 mg IV every 8 hours * Trough level obtained 02/23/23 resulted as 11.2 mcg/mL. This is predicted to achieve target AUC/JOVANNA of 400-600 mg/L.hr. However, given osteomyelitis, will increase dose to increase probability of target AUC/JOVANNA attainment. * Change to 1500 mg IV every 8 hours * Predicted AUC at steady state: 533 mg/L.hr * Repeat trough level ordered for: 02/25/23 OR Ertapenem * 1000 mg IV every 24 hours Pharmacy will continue to follow and will adjust dose/frequency as necessary. Thank you. Pharmacy has transitioned to AUC monitoring for vancomycin. AUC/JOVANNA is the preferred PK/PD target and is associated with decreased risk of nephrotoxicity compared to traditional trough targets.
[2023-02-23] MEDS: lisinopril 5 MG TAB PO SCH (08:39)
[2023-02-23] MEDS: MULTIVITAMIN TAB PO SCH (08:39)
[2023-02-23] MEDS: VANCOMYCIN HCL 1,500 MG in SODIUM CHLORIDE 0.9% 500 ML IV SCH ×2 (08:41→17:58)
--- NOTE | 2023-02-23 17:18 | Hospitalist Progress Note ---
Date of Service February 23, 2023 Assessment & Plan (1) Osteomyelitis of great toe of right foot: Plan: Osteomyelitis right great toe/diabetic foot infection-confirmed on MRI Has had arterial Dopplers in the past that are normal, and has a good distal pulse bilaterally venous doppler is negative Ertapenem 1 g IV daily & vancomycin IV per pharmacokinetic monitoring s/p surgery 02/22/23, cultures pending if noconfirmed organism, will have broad spectrum antibiotics to compete a week now that source control is assured (2) Diabetes mellitus type 2 with complications: Plan: Diabetes mellitus-with diabetic neuropathy Hold metformin Continue empagliflozin Placed on Accu-Cheks with NovoLog SSI (3) Factor V Leiden: Plan: negative DVT assure DVT prevention while ill Plan Sleep disorder- CPAP at bedtime as needed Admission and Anticipated Discharge Date Admission Date: February 21, 2023 Subjective pt is doing well post operatively has dressing in place Physical Exam Physical Exam: leg with mild swollen, has dressing on toe no other issues Results & Data Results & Data Vital Signs (Past 12 Hours) Vital Signs Temp Pulse Resp BP Pulse Ox O2 Del Method O2 Flow Rate 02/23/23 15:44 98.6 F 79 16 130/86 97 Room Air 02/23/23 11:37 98.4 F 78 16 128/72 94 Room Air 02/23/23 08:08 98.2 F 79 16 127/82 100 Nasal Cannula 2 Laboratory Results reviewed cbc reviewed prp PG Care Time/CCT Total # of Minutes Spent Total Time Spent with Patient: Total time spent is greater than 50% in coordination of care (as documented) at patient's floor/unit and/or counseling patient: Coding Level of Care Code 46768 SUB INP/OBS CARE 2/35MIN Diagnoses Osteomyelitis of great toe of right foot M86.9 Diabetes mellitus type 2 with complications E11.8 Factor V Leiden D68.51
[2023-02-23] MEDS ORDERED: ENOXAPARIN INJ 40 MG/0.4 ML SYR SQ ONE (17:30)
--- NOTE | 2023-02-23 17:37 | Operative Report ---
Post Operative Report Pre & Post Diagnosis Operation Date: 02/22/23 12:05 Pre-Op Diagnosis: Osteomyelitis of great toe of right foot Post-Op Diagnosis: Osteomyelitis of great toe of right foot I identified the patient and participated in the time-out.: Yes Procedure Operation Date: 02/22/23 12:05 Actual Procedures p Right Great Toe Amputation(Right) - Alejandro Zafar DPM, MS Surgeon Alejandro Zafar DPM, MS Marketing Operations Associate none Estimated Blood Loss 1 Findings Consistent with Post-Op Diagnosis Consistent with pre operative findings Specimens 1.) Right hallux - microbiology 2.) proximal phalanx clear margin - pathology Description of Procedure History of present illness: Patient is a 47-year-old male who is seen for treatment of necrotic Left great toe with osteomyelitis. X-rays and MRI positive for osteomyelitis. Patient notes a left foot ulcer open for multiple months. Patient relates minimal discomfort. All questions answered. Discussed procedure in detail and postoperative recovery. All potential risks, benefits, complications, alternatives, rehab, potential for incomplete relief of symptoms, need for further surgery, DVT, PE, , persistent pain, swelling, scarring, weakness, neurovascular, wound complications, and potential for amputations were discussed with patient. Unwanted outcomes such as, but not limited to were reviewed including under correction, overcorrection, return of deformity, infection. All questions were answered. Patient has decided to proceed with procedure as indicated. Preoperative diagnosis: left hallux osteomyelitis Postoperative diagnosis: same Name of operation: Amputation Left great toe Surgeon Dr. Zafar Marketing Operations Associate: None Anesthesia: local with monitored anesthesia care Hemostasis: None Estimated blood loss: minimal Procedure in detail: Under mild sedation the patient was brought in the operating room placed on the operating table in supine position. A pneumatic ankle tourniquet was then placed about the patient's left ankle. Following IV sedation local anesthesia was obtained about the left ray utilizing 15 cc of 1% lidocaine plain. The foot was then prepped scrubbed and draped in usual aseptic manner. Attention was then directed to the necrotic great toe. A fishmouth incision was created utilizing a sharp, sterile, #15 blade. The incision which was deepened through subcutaneous tissue using sharp blunt dissection. Care was taken to identify and retract all vital neurovascular structures. All bleeders were ligated and cauterized necessary. At this time the left hallux was removed at the metatarsal phalangeal joint.The left hallux was sent to microbiology. A portion of the proximal phalanx was sent to pathology for clear margins confirmation. Copious amounts of sterile lactate ringer were utilized to flush the incision site. The skin was then primarily closed utilizing 3-0 nylon in horizontal suture mattress techniques as well as simple suture closure. Upon completion of the procedure the incision was dressed with Betadine soaked Adaptic followed by sterile compressive dressing consisting of 4 x 4's Al Kerlix ABD. A post operative shoe was then applied. The Patient tolerated the procedure and anesthesia well. He was transferred to recovery room vital signs stable and vascular status intact to the left foot following.Patient re-admitted to the floor resuming all pre-operative orders. I attest to the content of the Intraoperative Record and any orders documented therein. Any exceptions are noted below.
[2023-02-24] MEDS: VANCOMYCIN HCL 1,500 MG in SODIUM CHLORIDE 0.9% 500 ML IV SCH ×3 (01:15→16:58)
[2023-02-24 06:34] LABS: Basophils # (auto) 0.01 K/uL (0.00-0.20); Basophils % (auto) 0.2 %; Eosinophils # (auto) 0.01 K/uL (0.00-0.50); Eosinophils % (auto) 0.2 %; Hematocrit (blood only) 41.5 % (42.0-52.0); Hemoglobin 13.9 g/dl (14.0-18.0); Immature Granulocytes # (auto) 0.01 K/uL (0.01-0.20); Immature Granulocytes % (auto) 0.2 %; Lymphocytes # (auto) 0.94 K/uL (1.20-3.40); Lymphocytes % (auto) 21.5 %; Mean Corpuscular Hemoglobin 30.1 pg (25.0-34.0); Mean Corpuscular Hgb Conc 33.5 g/dL (32.0-36.0); Mean Corpuscular Volume 89.8 fL (80.0-100.0); Mean Platelet Volume 8.1 fL (9.4-12.4); Monocytes # (auto) 0.54 K/uL (0.11-0.59); Monocytes % (auto) 12.4 %; Neutrophils # (auto) 2.86 K/uL (1.40-6.50); Neutrophils % (auto) 65.5 %; Platelet Count 177 K/uL (130-400); RDW Coefficient of Variation 13.2 % (11.5-14.5); RDW Standard Deviation 43.2 fL (36.4-46.3); Red Blood Count 4.62 M/uL (4.70-6.10); White Blood Count 4.37 K/ul (4.8-10.8)
[2023-02-24 06:55] LABS: Albumin Level 3.8 gm/dl (3.4-5.0); BUN Creatinine Ratio 17.8 (10-20); Calcium 8.6 mg/dl (8.6-10.3); Creatinine Clr Calc Pharmacy 191.8 ml/min; Est GFR (African American) 130.7 ml/min; Est GFR (Non-African American) 112.8 ml/min; Magnesium 2.1 mg/dl (1.7-2.4); Phosphorus 3.6 mg/dl (2.5-4.9); Potassium 4.4 mmol/L (3.5-5.1)
[2023-02-24] MEDS: lisinopril 5 MG TAB PO SCH (08:11)
[2023-02-24] MEDS: ERTAPENEM SODIUM 1,000 MG in SYRINGE 0 ML IV SCH (08:11)
[2023-02-24] MEDS: MULTIVITAMIN TAB PO SCH (08:11)
[2023-02-24] MEDS: INSULIN ASPART PER UNIT CHARGE SC SCH ×4 (08:12→21:18)
--- NOTE | 2023-02-24 08:38 | Orthopedic Progress Note ---
Date of Service February 23, 2023 Assessment & Plan (1) Osteomyelitis of great toe of right foot: Plan: Patient seen, evaluated, and treated. Patient is status post day #1 right hallux amputation (DOS: 02/22/22). Source control obtained with expected clear margins. Reviewed use of broad spectrum oral Abx therapy for 2 weeks. Patient ok for discharge per podiatry. Weight bearing as tolerated in surgical shoe. Will continue to follow while in house. (2) Diabetic ulcer of toe: (3) Diabetes mellitus type 2 with complications: Admission and Anticipated Discharge Date Admission Date: February 21, 2023 Subjective Patient seen at bedside in E308-1 resting comfortably. Patient is status post day #1 right hallux amputation (DOS: 02/22/22). No complaints, pain controlled. Physical Exam Constitutional: well developed, well nourished, cooperative and comfortable Eyes: normal visual vang by confrontation Neck: normal visual inspection and trachea midline Respiratory: normal respiratory effort Cardiovascular: Rate/Rhythm: regular rate and regular rhythm Vessels: posterior tibial pulses present and dorsalis pedis pulses present Musculoskeletal: Extremities: extremities normal to inspection, + amputation noted (Right hallux) and + foot abnormality (Hallux amptuation) Right Skin: + incision (Right hallux amputation site well coapted. Sutures intact.)
--- NOTE | 2023-02-24 14:10 | Hospitalist Progress Note ---
Date of Service February 24, 2023 Assessment & Plan (1) Osteomyelitis of great toe of right foot: Plan: Osteomyelitis right great toe/diabetic foot infection-confirmed on MRI Has had arterial Dopplers in the past that are normal, and has a good distal pulse bilaterally venous doppler is negative Ertapenem 1 g IV daily & vancomycin IV per pharmacokinetic monitoring s/p surgery 02/22/23, cultures pending if noconfirmed organism, will have broad spectrum antibiotics to compete 2 weeks now that source control is assured (2) Diabetes mellitus type 2 with complications: Plan: Diabetes mellitus-with diabetic neuropathy Hold metformin Continue empagliflozin Placed on Accu-Cheks with NovoLog SSI (3) Factor V Leiden: Plan: negative DVT assure DVT prevention while ill Plan Sleep disorder- CPAP at bedtime as needed Admission and Anticipated Discharge Date Admission Date: February 21, 2023 Subjective Pt is doing well , pain controlled cultures negative so far Physical Exam Physical Exam: leg with mild swollen, has dressing on toe no other issues cardiac is regular Results & Data Results & Data Vital Signs (Past 12 Hours) Vital Signs Temp Pulse Resp BP Pulse Ox O2 Del Method 02/24/23 08:38 97.7 F 72 16 119/75 97 Room Air Laboratory Results reviewed cbc reviewed chemistry PG Care Time/CCT Total # of Minutes Spent Total Time Spent with Patient: Total time spent is greater than 50% in coordination of care (as documented) at patient's floor/unit and/or counseling patient: Coding Level of Care Code 44775 SUB INP/OBS CARE 2/35MIN Diagnoses Osteomyelitis of great toe of right foot M86.9 Diabetes mellitus type 2 with complications E11.8 Factor V Leiden D68.51
--- NOTE | 2023-02-24 21:47 | Orthopedic Progress Note ---
Date of Service February 24, 2023 Assessment & Plan (1) Osteomyelitis of great toe of right foot: Plan: Patient seen, evaluated, and treated. Patient is status post day #2 right hallux amputation (DOS: 02/22/22). Reviewed wound cultures, no growth per date. Patient ok for discharge per podiatry. Patient will follow up in office. Weight bearing as tolerated in surgical shoe. Will continue to follow while in house. (2) Diabetic ulcer of toe: (3) Diabetes mellitus type 2 with complications: Admission and Anticipated Discharge Date Admission Date: February 21, 2023 Subjective Patient seen and evaluated in E308-1. Patient is status post day #2 right hallux amputation (DOS: 02/22/22). Patient resting comfortable and has no complaints. Physical Exam Constitutional: well developed, well nourished, cooperative and comfortable Eyes: normal visual vang by confrontation Neck: normal visual inspection and trachea midline Respiratory: normal respiratory effort Cardiovascular: Rate/Rhythm: regular rate and regular rhythm Vessels: posterior tibial pulses present and dorsalis pedis pulses present Musculoskeletal: Extremities: extremities normal to inspection, + amputation noted (Right hallux) and + foot abnormality (Hallux amptuation) Skin: + incision (Right hallux amputation site well coapted. Sutures intact.) Results & Data Vital Signs (Past 12 Hours) Vital Signs Temp Pulse Resp BP Pulse Ox O2 Del Method 02/24/23 19:55 36.9 C 64 20 138/81 94 Room Air 02/24/23 15:46 36.9 C 75 16 128/77 98 Room Air Diagnostic Findings [address], [place] [address] / Director: Rohith Alvares M.D. Clinical Laboratory Report Name: LEEROY KOCH Huy Acct: [id number] Status: ADM IN : 1980 [facility] Date: 02/21/23 Age: 42 Sex: M Dis Date: Loc: Medical/Surgical/Ortho 3 East Rm/Bed: E308-1 Spec: [id number] Collected: 02/22/23-UN Received: 02/22/23-[address]: Alejandro Zafar DPM, MS Copy To: Eder Cerda MD Source: Toe,Right Great OV Order: Ordered: Aer/ Cult/Sm Comments: Comment 1: Right PROXIMAL Phalanx for Culture (SOURCE CHANGED PER DR. ZAFAR) Procedure Result Verified Site Gram Stain Final 02/22/23 Gram Stain Result No WBCs Seen, No Organisms Seen Aero/ Cult Preliminary 02/24/23-1214 No growth to date. Name: LEEROY KOCH : 1980 PAGE 1 Printed: 02/24/23 5716 END OF REPORT
[2023-02-25] MEDS: VANCOMYCIN HCL 1,500 MG in SODIUM CHLORIDE 0.9% 500 ML IV SCH ×2 (01:24→08:56)
[2023-02-25] MEDS: lisinopril 5 MG TAB PO SCH (07:50)
[2023-02-25] MEDS: MULTIVITAMIN TAB PO SCH (07:50)
[2023-02-25] MEDS: ERTAPENEM SODIUM 1,000 MG in SYRINGE 0 ML IV SCH (07:50)
[2023-02-25] MEDS: INSULIN ASPART PER UNIT CHARGE SC SCH ×2 (08:12→12:37)
[2023-02-25] MEDS ORDERED: VANCOMYCIN LEVEL ONE (08:30)
--- NOTE | 2023-02-25 09:56 | Pharmacy Report ---
Pharmacy PK ABX Note - Date of Service February 25, 2023 - Assessment and Plan Assessment 02/25 SCr stable. Vanco level of 12.5 mcg/mL today associated with therapeutic AUC. No change for now - will repeat level in 48 hours to ensure level remains therapeutic. 02/23 42 year old M receiving Vancomycin and Ertapenem for treatment of right great toe osteomyelitis. * Day #2 of antimicrobial therapy. * POD #1 s/p right great toe amputation * PMHx significant for T2DM. * Labs/Vitals: Afebrile. No leukocytosis. SCr stable. * Micro: blood cultures show no growth at 24 hours, right great toe cultures pending * Imaging: XR and MRI confirm osteomyelitis per radiologist's read. Plan Vancomycin * Continue urrent regimen: 1500 mg IV every 8 hours * Trough level obtained 02/23/23 resulted as 11.2 mcg/mL. This is predicted to achieve target AUC/JOVANNA of 400-600 mg/L.hr. * Predicted AUC at steady state: 533 mg/L.hr * Repeat level ordered for: 02/27/23 w AM labs Ertapenem * 1000 mg IV every 24 hours Pharmacy will continue to follow and will adjust dose/frequency as necessary. Thank you. Pharmacy has transitioned to AUC monitoring for vancomycin. AUC/JOVANNA is the preferred PK/PD target and is associated with decreased risk of nephrotoxicity compared to traditional trough targets.
--- NOTE | 2023-02-25 14:55 | Discharge Summary ---
Date of Service February 25, 2023 Admission HPI Per Admitting Provider The patient is a 42-year-old male with a past medical history including factor V Leiden, hypertension, diabetic ulcer of right great toe, history of pneumothorax, and hypertriglyceridemia, diabetes mellitus type 2, diabetic neuropathy, obesity, and MAXI on CPAP. He presents to the emergency department due to a worsening of right great toe infection. X-rays in the emergency department suggested a right first distal phalanx infection suggestive of osteomyelitis and cellulitis. Principal Diagnosis osteomyelitis of right great toe, s/p r great toe amputation Discharge Exam awake and alert pain controlled Discharge Data Allergies Allergy/AdvReac Type Severity Reaction Status Date / Time No Known Drug Allergies Allergy none Verified 02/22/23 00:15 Consultations 02/21/23 23:28 ED Decision to Admit Stat 02/22/23 10:00 Consult Podiatry Routine Procedures Performed Operation Date: 02/22/23 12:05 Actual Procedures p Right Great Toe Amputation(Right) - Alejandro Zafar DPM, MS Ordered Studies 02/22/23 01:56 MRI Foot [MR foot RT w/o con] Routine 02/22/23 02:01 US venous doppler LE RT Stat Hospital Course (1) Osteomyelitis of great toe of right foot: Osteomyelitis right great toe/diabetic foot infection-confirmed on MRI Has had arterial Doppler in the past that are normal, and has a good distal pulse bilaterally venous Doppler is negative Ertapenem 1 g IV daily & vancomycin IV while inpatient s/p surgery 02/22/23, cultures pending at time of d/c, no confirmed organism now > 48 hours , will have broad spectrum antibiotics, augmenting to compete 2 weeks now that source control is assured (2) Diabetes mellitus type 2 with complications: Diabetes mellitus-with diabetic neuropathy resume metformin Continue empagliflozin watch glucose control while healing (3) Factor V Leiden: negative DVT assure DVT prevention while ill , given Rx for Xarelto 10 mg daily for dvt prevention in high risk medical patient Plan Sleep disorder- CPAP at bedtime as needed Total Time Total Time Spent Total Time Spent (In Minutes): It required greater than 30 minutes to prepare this patient for discharge. Discharge Plan Discharge Items Patient Disposition: Home - Self-Care Reason For Visit: DIABETIC FOOT INFECTION, OSTEOMYELITIS Discharge Diagnosis: Right great toe osteomyelitis amputation of right Great toe Activity: Per Instructions section Activity Comment: partial weight bearing with operative shoe Non-emergency contact: Primary Care Provider Call non-emergency contact if: your symptoms worsen Follow-up/Referrals: Marcos Jacobs, DO [Primary Care Provider] - Diet: Carb Consistent or DM2 Addtl Attending Provider Instructions: please keep foot elevated and keep dressing clear try to limit walking follow up with Dr Zafar Given your factor V leiden diagnosis you are at a higher risk of blood clots, and post operatively you will have inflamation and not be moving as much, to prevent a deep vein thrombosis you will be given a low dose of anticoagulation for a month post operatively Pending Studies at Discharge: No Stand-Alone Forms: My [facility], Smoking Cessation Medications and DC Order Prescriptions: New Xarelto 10 mg tablet 10 mg PO DAILY 30 Days Qty: 30 0RF amoxicillin-pot clavulanate 875-125 mg tablet 1 tab PO BID Qty: 22 0RF Continued multivitamin Tablet 1 tab PO QAM omega 8-rap-wdy-fish oil [Fish Oil] 300-1,000 mg capsule 1 cap PO QAM glucosamine-chondroitin 900 mg tablet 900 mg PO QAM ibuprofen 200 mg capsule 200 mg PO Q8H PRN (Reason: pain) metformin 1,000 mg tablet 1,000 mg PO BID Qty: 180 3RF empagliflozin 10 mg tablet 10 mg PO QAM Qty: 90 1RF (DME) Auto Titrating CPAP Misc See Rx Instructions .Route Qty: 1 0RF Rx Instructions: pressures from 5 to 15 cm of water (DME) CPAP Supplies Misc See Rx Instructions .Route Qty: 1 0RF Rx Instructions: tubing, mask, filter lisinopril 5 mg tablet 5 mg PO QAM Discharge Orders: Discharge Order (Routine); Ordered 02/25/23 Ordered By: Gabriel Mckenna/Other Patient Handouts: Nutrition for Wound Healing, Managing Type 2 Diabetes, ED Diabetic Foot Care Admission Data Admit Date/Time: 02/21/23 23:52 Attending Provider: Gabriel Portillo Admit Provider: Eder Cerda Primary Care Provider: Marcos Jacobs Other Providers: Eder Cerda; Alejandro Zafar Other Interventions: Discharge Summary Assessment (RN) Last Done: 02/25/23 10:59 Coding Level of Care Code 02499 INP/OBS DISCH >30 MIN Diagnoses Osteomyelitis of great toe of right foot M86.9 Diabetes mellitus type 2 with complications E11.8 Factor V Leiden D68.51
[2023-02-27] MEDS ORDERED: VANCOMYCIN LEVEL ONE (08:30)
== END 2023-02-25 14:54 | disposition home or self-care (01) | DRG 617 ==
LOC: ED 17:04 → SUATTDRO 23:52 → EDINP 23:52 → 3E 02-22 19:55